=== PATIENT | female | born 1950 | race Two or more races ===

== ENCOUNTER 2019-05-16 14:30 | Inpatient (IN) | payer OTHER ==
[~2019-05-16] VITALS: Ht 157.5 cm; Wt 72.6 kg
[2019-05-16] MEDS ORDERED: PROTONIX40 MG PO (15:46)
[2019-05-16] MEDS ORDERED: SYNTHROID88 MCG PO (15:46)
[2019-05-16] MEDS ORDERED: ELAVIL PO ×2 (15:47→15:52)
[2019-05-16] MEDS ORDERED: CARAFATE1 GM PO (15:47)
[2019-05-16] MEDS ORDERED: AVALIDE PO (15:48)
[2019-05-16] MEDS ORDERED: CRESTOR PO (15:49)
[2019-05-24] MEDS ORDERED: AMITRIPTYLINE H25 MG PO (08:28)
[2019-05-24] MEDS ORDERED: ROSUVASTATIN CAL5 MG PO (08:29)
[2019-05-24] MEDS ORDERED: IRBESARTAN-HCT1 EACH PO (08:46)
[2019-05-24] MEDS ORDERED: Tylenol #3 PO (08:59)
== END 2019-05-24 12:20 | disposition home or self-care (01) | DRG 743 ==
LOC: O/R 14:30 → SURG-SUITE 05-23 09:00 → O/R 05-23 09:00 → RECOVERY 05-23 13:30 → SURG-SUITE 05-23 15:18
PROVIDERS: ADMIT Obstetrics & Gynecology
PROC: 0UT78ZZ Resection of Bilateral Fallopian Tubes, Via Natural or Artificial Opening Endoscopic (ICD-10-PCS; 2019-05-23)
PROC: 0UT28ZZ Resection of Bilateral Ovaries, Via Natural or Artificial Opening Endoscopic (ICD-10-PCS; 2019-05-23)
PROC: 0UT98ZZ Resection of Uterus, Via Natural or Artificial Opening Endoscopic (ICD-10-PCS; principal; 2019-05-23 13:30)
DX: N81.3 Complete uterovaginal prolapse (principal); R10.2 Pelvic and perineal pain; D25.1 Intramural leiomyoma of uterus; N87.1 Moderate cervical dysplasia; I11.9 Hypertensive heart disease without heart failure; K21.9 Gastro-esophageal reflux disease without esophagitis; E03.8 Other specified hypothyroidism

== ENCOUNTER 2019-05-24 23:42 | Inpatient (IN) | payer OTHER ==
[~2019-05-24] VITALS: Ht 157.5 cm; Wt 70.8 kg
[~2019-05-24 23:42] MED LIST: AMITRIPTYLINE H25 MG PO; AVALIDE PO; CARAFATE1 GM PO; CRESTOR PO; ELAVIL PO; IRBESARTAN-HCT1 EACH PO; PROTONIX40 MG PO; ROSUVASTATIN CAL5 MG PO; SYNTHROID88 MCG PO; Tylenol #3 PO
[2019-05-27] MEDS ORDERED: TYLENOL325 MG PO (09:08)
[2019-05-28] MEDS ORDERED: MACROBID 100 M100 MG PO (15:07)
[2019-05-28] MEDS ORDERED: IRON1TAB4 PO (15:07)
== END 2019-05-28 16:08 | disposition home or self-care (01) | DRG 389 ==
LOC: ER 23:42 → SEC-K 05-25 00:54 → SURG-SUITE 05-25 00:54 → OB/GYN 05-25 04:39 → SURG-SUITE 05-25 07:11
PROVIDERS: ADMIT Obstetrics & Gynecology
PROC: BW21Y0Z Computerized Tomography (CT Scan) of Abdomen and Pelvis using Other Contrast, Unenhanced and Enhanced (ICD-10-PCS; principal; 2019-05-25)
PROC: 0T9B70Z Drainage of Bladder with Drainage Device, Via Natural or Artificial Opening (ICD-10-PCS; 2019-05-27)
DX: K91.31 Postprocedural partial intestinal obstruction (principal); D62 Acute posthemorrhagic anemia; J90 Pleural effusion, not elsewhere classified; G89.18 Other acute postprocedural pain; R10.2 Pelvic and perineal pain; E03.8 Other specified hypothyroidism; I11.9 Hypertensive heart disease without heart failure; N81.11 Cystocele, midline; N32.89 Other specified disorders of bladder; R33.8 Other retention of urine; N83.292 Other ovarian cyst, left side